=== PATIENT | male | born 1965 | race Caucasian/White ===

== ENCOUNTER 2025-10-24 10:22 | Day surgery (SDC) | payer OTHER, SELFPAY ==
--- NOTE | 2025-10-23 17:35 | W.ANESPRE ---
General Info Date of Service Date Performed: 10/24/25 Height: 5 ft 9 in Weight: 81.647 kg Body Mass Index (BMI): 26.6 Surgical Procedure: Operation Date: 10/24/25 11:50 Proposed Procedure Side Surgeon rowan Condon MD Meds Allergies and Home Medications Allergies Allergy/AdvReac Type Severity Reaction Status Date / Time No Known Allergies Allergy Verified 10/22/25 11:28 Home Medication ?Medication ?Instructions ?Recorded albuterol sulfate 90 mcg/actuation 2 puff inhalation Q6H PRN 10/10/25 aerosol inhaler (Ventolin HFA) hydrochlorothiazide 12.5 mg tablet 12.5 mg PO DAILY 10/10/25 hydrochlorothiazide 25 mg tablet 25 mg PO DAILY 10/10/25 bisacodyl 5 mg tablet,delayed 5 mg PO ONCE Colonoscopy Bowel 10/15/25 release Prep #4 tabs polyethylene glycol 3350 17 238 g PO ONCE #238 grams 10/15/25 gram/dose oral powder Current Visit Medications: Current Medications Generic Name Dose Route Start Last Admin Trade Name Freq PRN Reason Stop Dose Admin Ringer's Solution 1,000 mls @ 80 mls/hr 10/24/25 06:00 IV 10/24/25 23:59 INFUSION NISHA Sodium Chloride 0 ml 10/24/25 06:00 Normal Saline Flush 10 Ml Syr IV 10/24/25 23:59 PRN PRN Sodium Chloride 0 ml 10/24/25 06:00 Normal Saline 10 Ml Vial IJ 10/24/25 23:59 DIRECTED PRN Sterile Water 0 ml 10/24/25 06:00 Water,Injection,Sterile 10 Ml Vial IJ 10/24/25 23:59 DIRECTED PRN PFSH Active Problems Active Problems: Problem Status Onset Code Condyloma acuminatum of perianal region Acute A63.0 Hyperlipidemia Acute E78.5 Herpesviral infection Acute B00.9 COPD (chronic obstructive pulmonary disease) Chronic J44.9 Essential hypertension Acute I10 Medical History Medical History Fatty (change of) liver, not elsewhere classified Tobacco Smoking/Tobacco Use Status: Current every day Tobacco Type: cigarettes Smoking cigarettes per day: 20 Alcohol Alcohol Intake: current Alcohol intake frequency: 0-2 drinks per day Alcohol type: beer Substance Use Substance use: Occasionally Substance use type: marijuana Vital Signs and Lab Results Vital Signs Most Recent Vital Signs in EMR: Temp Pulse Resp BP Pulse Ox 36.5 C 90 18 148/99 H 100 10/24/25 11:02 10/24/25 11:02 10/24/25 11:02 10/24/25 11:02 10/24/25 11:02 Anesthesia Assessment and Plan Anesthesia History Personal History: No History of Anesthesia Complications Family History: No Family History of Anesthesia Complications Exercise Tolerance Exercise Tolerance: Metabolic Equivalents>4 Pertinent Negatives Pertinent Negatives: No Symptoms of GERD, No Major Cardiovascular Symptoms or Complaints and No History of CVA/TIA Cardiac & Pulmonary Exam Cardiac Exam: Normal S1/S2 Heart Sounds Pulmonary Exam: Clear Bilateral Breath Sounds Implantable Cardiac Device Does patient have a Pacemaker or an ICD?: No Airway Exam Known Difficult Airway: No Mallampati Class: 3 Mouth Opening: Normal (> 3cm) Thyromental Distance: Greater than 3 cm Neck Range of Motion: Full ROM Neck Circumference: Normal Teeth Condition: Edentulous (Except for as noted below) Tooth Numbering:  1. tooth present 2. tooth present ASA Classification ASA Score: ASA 2 Emergency Case?: No NPO Status NPO Status: NPO Clears >2 hours, Solids >8 hours Anesthesia Plan Resuscitation Status: Full Code Anesthesia Technique: General Anesthesia Airway Planned: Natural Airway Monitors Used: Standard Monitors Preoperative Comments:: 60 yo for colo. Sig PMHx: HTN (HCTZ), COPD (albuterol). Smoker, occ EtOH/cannabis. PSH: EUA at [facility] for hemorrhoids. No problems with anesthesia
[2025-10-24 11:02] VITALS: BP 148/99; PULSE 90; RESP 18; TEMP 36.5; O2SAT 100
[2025-10-24] MEDS: Lactated Ringers 1,000 ML 80 ML IV (11:24)
[2025-10-24 11:28] VITALS: BP 85/62; PULSE 56
[2025-10-24 11:30] VITALS: BP 105/75; PULSE 66
--- NOTE | 2025-10-24 11:31 | NUR.NOTE ---
pt became diuphoretic during IV start , he was placed in reverse tredelenberg and recieved 100 cc IV fluid , no LOCNursing Note:
[2025-10-24 11:47] VITALS: BMI 26.6
--- NOTE | 2025-10-24 12:43 | BOWEL_PTH ---
PATIENT: Abraham Mendoza LOC: [facility] U#:[id number] AGE/SX: 60/M ROOM: RE10/24/[address]: Tamie Condon : 1965 BED: DIS: 10/24/2025 SPEC #: [id number] RECD: 10/24/25 17:56 STATUS: GRAHAM REQ #: [id number] RENZO: 10/24/25 12:[address]: Tamie Condon DEPT: Surgical Specimen RECD BY: Lexi Mckeon Tissues: 1 - BIOPSY BOWEL Procedures: GROSS AND MICRO LEVEL 4 Comments: [id number]
--- NOTE | 2025-10-24 12:52 | W.PM.DSUDISC ---
Date of service: 10/24/25 Discharge Plan Disposition Patient Disposition: Home Condition: Good Discharge Details Reason For Visit: Screening colonoscopy Attending Provider: Tamie Condon Recommendations for Follow Up Recommended tests to be ordered by follow up provider: Follow up pathology Home Meds and New Rx's Prescriptions: Continued hydrochlorothiazide 25 mg tablet 25 mg PO DAILY albuterol sulfate [Ventolin HFA] 90 mcg/actuation HFA aerosol inhaler 2 puff inhalation Q6H PRN hydrochlorothiazide 12.5 mg tablet 12.5 mg PO DAILY Discontinued bisacodyl 5 mg tablet,delayed release (DR/EC) 5 mg PO ONCE Qty: 4 0RF Rx Instructions: Per Colonoscopy bowel prep instructions polyethylene glycol 3350 17 gram/dose powder 238 g PO ONCE Qty: 238 0RF Rx Instructions: For Colonoscopy bowel prep, as directed by office Discharge Instructions Instructions: Colon polyps Additional Instructions: Your colonoscopy went well today. You did have some evidence of diverticulosis or small outpouchings of the colon. He also had 2 small polyps which were removed and will be sent to pathology. Once the pathology results return we will contact you via mail with recommendations for when to have a repeat colonoscopy. If you have any questions or concerns please contact the general surgery office. 1. If tolerated, consume a soft, low fiber diet for 1-2 days. 2[address] Do not drive, drink alcohol, operate machinery, make critical decisions, or do activities that require coordination or balance for 24 hours. 3. Because air was put into your colon during the procedure, expelling air from your rectum (passing gas or farting) is normal. 4. You may not have a bowel movement for 1-3 days because of the colonoscopy prep. This is normal. 5. Go directly to the emergency room if you notice any of the following: Develop chills (warm to touch), or if you have a thermometer and your temperature is above 101 Difficulty breathing or difficultly swallowing Persistent vomiting Severe abdominal pain, other than gas cramps Severe chest pain Black, tarry stools Any bleeding ? exceeding one tablespoon 6. Call your physician if the site where your intravenous was started becomes red, swollen, painful, and warm to touch. 7. Your physician has reviewed your pre-procedure medications. Please continue to take those medications as previously ordered. You will be given specific information/education regarding any changes to your medications before leaving. Stand Alone Forms: Anesthesia Discharge Inst., [facility] L Bell ([facility]), Portal Information Activity:: Activity as Tolerated Diet:: As Tolerated Discharge Orders Discharge Orders: Discharge Order (Routine); Ordered 10/24/25 Ordered By: Tamie Condon
[2025-10-24 12:53] VITALS: BP 114/66; PULSE 93; RESP 16; TEMP 36.3; O2SAT 99
--- NOTE | 2025-10-24 12:56 | W.COLOREPORT ---
Date of service: 10/24/25 Time of Service: 12:57 Colonoscopy Report Date of procedure: 10/24/25 Pre-op diagnosis general: Screening colonoscopy Post-op diagnosis procedure note: other (Colon polyps ) Procedure: Colonoscopy with polypectomy Surgeon: Tamie Condon Anesthesia Type: General:No Airway Estimated blood loss (mL): 1 Pathology: other (Colon polyps x2 at 20cm ) Complications: None Disposition: PACU Indications: Patient is a 60-year-old male who presents for screening colonoscopy. He has no changes in bowel habits or family history of colon cancer. Prep: Miralax/Dulcolax Procedure Start Time: 12:26 Procedure End Time: 12:47 Retraction Time: 18 Findings: Evidence of rectosigmoid diverticulosis. Two small polyps identified at 20 cm and removed with cold forceps. Evidence of known perianal condylomas. Procedure Description: The patient was brought to the endoscopy suite and placed in the left lateral decubitus position. After induction of IV sedation, a digital rectal exam was performed. Digital exam revealed known condylomas. The colonoscope was then passed to the cecum without difficulty. Cecal intubation was confirmed by the identification of the appendiceal orifice and the ileocecal valve. Upon withdrawing the colonoscope, all mucosal surfaces were inspected. The prep was noted to be adequate. At 20cm there were 2 small polyps, which were removed using cold forceps in its entirety. Specimens were retrieved for pathological analysis. There was evidence of rectosigmoid diverticulosis. Retroflexion in the rectum was unremarkable. The patient tolerated the procedure well with no complications. Postoperatively, the patient was transferred to the recovery room in stable condition. [place] Bowel Prep [place] Bowel Prep Right Colon: 3 Left Colon: 3 Transverse Colon: 3 Total Score: 9
--- NOTE | 2025-10-24 13:06 | W.ANESPOSTOP ---
Postoperative Evaluation Date, Time and Location Date Performed: 10/24/25 Time Performed: 13:00 Patient Location: Day Surgery Unit Vital Signs Most Recent Imported Vital Signs: Most Recent Vital Signs Temp Pulse Resp BP Pulse Ox 36.3 C L 93 H 16 114/66 99 10/24/25 12:53 10/24/25 12:53 10/24/25 12:53 10/24/25 12:53 10/24/25 12:53 Pain Score Most Recent Pain Score: Most Recent Pain Score Pain Level 0 10/24/25 12:53 Assessment Mental Status: Awake (Alert & Oriented to Patient Baseline) Airway and Respiratory Function: Patent airway with normal (patient baseline) respiratory exam Cardiovascular Function: Hemodynamically Stable Hydration Status: Adequately Hydrated Nausea & Vomiting: No Nausea or Vomiting Pain: Pt. Denies Any Pain Peripheral Nerve Block: Patient did not receive a nerve block
[2025-10-24 13:20] VITALS: BP 129/93; PULSE 87; RESP 16; TEMP 36.3; O2SAT 98
== END 2025-10-24 13:32 | disposition home or self-care (01) ==
PROVIDERS: Visit Provider Student in an Organized Health Care Education/Training Program
PROC: 0DJD8ZZ Inspection of Lower Intestinal Tract, Via Natural or Artificial Opening Endoscopic (ICD-10-PCS; CPT 45378; principal; 2025-10-24 11:45)
DX: Z12.11 Encounter for screening for malignant neoplasm of colon (principal); K63.5 Polyp of colon; I10 Essential (primary) hypertension; K57.30 Diverticulosis of large intestine without perforation or abscess without bleeding
CPT/HCPCS: 45380; 88305; J2704